=== PATIENT | male | born 1960 | race Caucasian/White ===

== ENCOUNTER 2021-05-22 17:58 | Emergency (ER) | payer OTHER ==
[~2021-05-22] VITALS: Ht 170.2 cm; Wt 106.8 kg
--- NOTE | 2021-05-22 19:01 | PHYS DOC ---
Past Medical History Past Medical History: Hypertension, Hypothyroid General Adult EDM: Chief Complaint: FOOT INJURY PAIN HPI: HPI: Patient is a 61 year old male with history of poorly controlled hypertension who presents with small laceration and bleeding to his right foot. Patient states he was removing a callus from the medial aspect of his foot with his fingernail, when he nicked a bulging vein. It began bleeding, so he called EMS. Patient states his blood pressures run systolic in the 160s, and is unsure of his d iastolic readings. He does report that he takes 325 mg of aspirin daily due to history of A. fib. He states he does not have any irregular heart rate now, however did need conversion in the past. Patient does not receive regular foot care by podiatry or otherwise. Patient has no other complaints at this time. Review of Systems: Review of Systems: Constitutional: Denies fever or chills. Eyes: Denies change in visual acuity or visual grant. Respiratory: Denies cough or shortness of breath. Cardiovascular: Denies chest pain or edema. Musculoskeletal: Denies back pain or joint pain. Integument: See HPI Neurologic: Denies headache, focal weakness or sensory changes. Heart Score: C/O Chest Pain: No Physical Exam: PE: Constitutional: Well developed, well nourished, no acute distress, non-toxic appearance. Cardiovascular: Heart rate regular rhythm, no murmur. Lungs & Thorax: Bilateral breath sounds clear to auscultation. Abdomen: Bowel sounds normal, soft, no tenderness, no masses, no pulsatile masses. Skin: 1 cm laceration to medial aspect of right foot. Stasis dermatitis noted on bilateral lower extremities. Skin otherwise warm, dry, no erythema. Extremities: No tenderness, no cyanosis, no clubbing, ROM intact, no edema, varicose veins present on bilateral feet to ankles. Neurologic: Alert and oriented x3, normal motor function, normal sensory function, no focal deficits noted. Psychologic: Affect flat but pleasant, fair judgment, mood "concerned about bleeding." Current Patient Data: Labs: Laboratory Tests Test 05/22/21 19:40 White Blood Count 9.1 x10^3/uL (4.0-11.0) Red Blood Count 4.21 x10^6/uL (4.30-5.70) Hemoglobin 13.1 g/dL (13.0-17.5) Hematocrit 38.2 % (39.0-53.0) Mean Corpuscular Volume 91 fL (79-100) Mean Corpuscular Hemoglobin 31 pg (25-35) Mean Corpuscular Hemoglobin Concent 34 g/dL (31-37) Red Cell Distribution Width 14.5 % (11.5-14.5) Platelet Count 239 x10^3/uL (140-400) Neutrophils (%) (Auto) 84 % (31-73) Lymphocytes (%) (Auto) 9 % (24-48) Monocytes (%) (Auto) 5 % (0-9) Eosinophils (%) (Auto) 1 % (0-3) Basophils (%) (Auto) 1 % (0-3) Neutrophils # (Auto) 7.6 x10^3/uL (1.8-7.7) Lymphocytes # (Auto) 0.8 x10^3/uL (1.0-4.8) Monocytes # (Auto) 0.5 x10^3/uL (0.0-1.1) Eosinophils # (Auto) 0.1 x10^3/uL (0.0-0.7) Basophils # (Auto) 0.1 x10^3/uL (0.0-0.2) Course & Med Decision Making: Course & Med Decision Making Pertinent Labs and Imaging studies reviewed. (See chart for details) Patient states he called EMS due to the amount of bleeding from the superficial vein that he nicked. He expresses concern about needing a blood transfusion here in the emergency department. Patient was reassured that we would check his red blood cell count and hemoglobin to ensure that he does not have any hemorrhagic anemia at this time. Patient's hemoglobin was within normal limits. Patient will be discharged home. He should return if his wound bleeds again or if he develops any new symptoms. He is instructed to follow-up with his primary care provider regarding varicose veins and hypertension management. Patient understands and is agreeable to discharge plan. Dragon Disclaimer: Dragon Disclaimer: This electronic medical record was generated, in whole or in part, using a voice recognition dictation system. Laceration Repair Lac Repair Indication: Laceration to medial aspect of right foot Procedure: The patient was placed in the appropriate position. The area was then cleansed with warm soapy water. The laceration was closed with Dermabond. The wound area was then dressed with adhesive bandage large enough that the adhesive does not touch the laceration itself. Total repaired wound length: 1 cm Other Items: The patient tolerated the procedure very well. Complications: No complications. Departure Departure Impression: Primary Impression: Laceration without foreign body, right foot, initial encounter Disposition: HOME / SELF CARE / HOMELESS Condition: STABLE Referrals: BRENT BOATENG MD (PCP) Patient Instructions: Hypertension, [id number], Laceration Care, Adult, [id number], Varicose Veins Additional Instructions: Your hemoglobin today is normal, so you do not need a blood transfusion. You should follow-up with your primary care provider regarding your elevated blood pressure, as they may need to adjust your medications. Additionally, you can wear compression stockings to aid with any discomfort that you get from the swollen veins in your lower legs. Please return to the emergency department if your wound begins to bleed again, or you develop any new symptoms. MANE GIVENS May 22, 2021 19:00
[2021-05-22 19:44] LABS: BASO # 0.1 x10^3/uL (0.0-0.2); BASO % 1 % (0-3); EOS # 0.1 x10^3/uL (0.0-0.7); EOS % 1 % (0-3); HEMATOCRIT 38.2 % (39.0-53.0); HEMOGLOBIN 13.1 g/dL (13.0-17.5); LYMPH # 0.8 x10^3/uL (1.0-4.8); LYMPH % 9 % (24-48); MEAN CORPUSCULAR HEMOGLOBIN 31 pg (25-35); MEAN CORPUSCULAR HGB CONC 34 g/dL (31-37); MEAN CORPUSCULAR VOLUME 91 fL (79-100); MONO # 0.5 x10^3/uL (0.0-1.1); MONO % 5 % (0-9); NEUT # 7.6 x10^3/uL (1.8-7.7); NEUT % 84 % (31-73); PLATELET COUNT 239 x10^3/uL (140-400); RED BLOOD COUNT 4.21 x10^6/uL (4.30-5.70); RED CELL DISTRIBUTION WIDTH 14.5 % (11.5-14.5); WHITE BLOOD COUNT 9.1 x10^3/uL (4.0-11.0)
[2021-05-22 20:30] VITALS: BP 141/77
== END 2021-05-22 20:50 | disposition home or self-care (01) ==
LOC: ER 17:58
DX: S91.311A Laceration without foreign body, right foot, initial encounter (principal); I10 Essential (primary) hypertension; E03.9 Hypothyroidism, unspecified; I48.91 Unspecified atrial fibrillation; I87.2 Venous insufficiency (chronic) (peripheral); Y28.8XXA Contact with other sharp object, undetermined intent, initial encounter; Y99.8 Other external cause status; Y92.89 Other specified places as the place of occurrence of the external cause; Y93.89 Activity, other specified
CPT/HCPCS: 12001; 36415; 85025; 99284